=== PATIENT | male | born 1970 | race Caucasian/White ===

== ENCOUNTER 2021-07-07 09:47 | Outpatient (CLI) | payer BC | END 2021-07-07 23:59 | disposition home or self-care (01) | LOC: RAD 09:47 | PROVIDERS: ATTEND Internal Medicine | DX: M25.552 Pain in left hip (principal) | CPT/HCPCS: 73522 ==

== ENCOUNTER 2022-06-14 07:12 | Day surgery (SDC) | payer BC ==
[~2022-06-14] VITALS: Ht 175.3 cm; Wt 81.8 kg
[2022-06-14 07:25] VITALS: BP 137/74
[2022-06-14] MEDS ORDERED: [UNRECOGNIZED DRUG - OTHER] (07:27)
[2022-06-14] MEDS ORDERED: MULT-1085 PO (07:27)
[2022-06-14] MEDS ORDERED: OMEG-5 PO (07:27)
[2022-06-14] MEDS ORDERED: IBUP-1986 PO (07:27)
[2022-06-14] MEDS ORDERED: SAW/1TAB2 (07:27)
[2022-06-14] MEDS ORDERED: MIDAZolam 1 MG/ML 5ML VIAL ONE (07:47)
[2022-06-14] MEDS ORDERED: fentaNYL/PF 50MCG/1 ML 2ML syringe ONE (07:47)
[2022-06-14 09:17] VITALS: BP 103/49
[2022-06-14 09:27] VITALS: BP 111/62
[2022-06-14 09:37] VITALS: BP 111/74
== END 2022-06-14 09:50 | disposition home or self-care (01) ==
LOC: GI LAB 07:12
PROVIDERS: ATTEND Internal Medicine Gastroenterology
DX: Z12.11 Encounter for screening for malignant neoplasm of colon (principal); K63.5 Polyp of colon; K57.30 Diverticulosis of large intestine without perforation or abscess without bleeding; K64.8 Other hemorrhoids; F12.90 Cannabis use, unspecified, uncomplicated; Z72.89 Other problems related to lifestyle
CPT/HCPCS: 45385; 99152; 99153; C1889; J2250; J3010; J7030; Z7512; A4620

== ENCOUNTER 2023-08-09 19:05 | Emergency (ER) | payer BC ==
[~2023-08-09] VITALS: Ht 177.8 cm; Wt 83.6 kg
[~2023-08-09 19:05] MED LIST: IBUP-1986 PO; MULT-1085 PO; OMEG-5 PO; SAW/1TAB2; [UNRECOGNIZED DRUG - OTHER]
[2023-08-09 19:32] VITALS: BP 140/73; PULSE 73; RESP 16; TEMP 98.5; O2SAT 97
[2023-08-10] MEDS ORDERED: OXYC-145 PO (00:19)
== END 2023-08-10 00:43 | disposition home or self-care (01) ==
LOC: ER 19:06
DX: S30.0XXA Contusion of lower back and pelvis, initial encounter (principal); Z79.899 Other long term (current) drug therapy; Z79.1 Long term (current) use of non-steroidal anti-inflammatories (NSAID); W19.XXXA Unspecified fall, initial encounter; Y93.89 Activity, other specified; Y92.89 Other specified places as the place of occurrence of the external cause; Y99.8 Other external cause status
CPT/HCPCS: 72192; 73080; 99284

== ENCOUNTER 2024-09-13 16:55 | Inpatient (IN) | payer BC ==
[~2024-09-13] VITALS: Ht 175.3 cm; Wt 63.8 kg
[~2024-09-13 16:55] MED LIST changes: +OXYC-145 PO
[2024-09-13 17:33] LABS: BASOPHILS % (AUTO) 0.3 % (0-1); EOSINOPHILS # (AUTO) 0.1 X10'3 (0-0.9); EOSINOPHILS % (AUTO) 0.7 % (0-6); HEMATOCRIT 38.5 % (42.0-52.0); HEMOGLOBIN 13.3 g/dl (14.0-17.9); LYMPHOCYTES # (AUTO) 1.3 X10'3 (1.1-4.8); LYMPHOCYTES % (AUTO) 12.6 % (21-51); MEAN CORPUSCULAR HEMOGLOBIN 29.9 PG (27.0-31.0); MEAN CORPUSCULAR HGB CONC 34.5 g/dL (33.0-36.5); MEAN CORPUSCULAR VOLUME 86.8 FL (78-98); MEAN PLATELET VOLUME 7.2 FL (7.4-10.4); MONOCYTES # (AUTO) 0.7 X10'3 (0-0.9); MONOCYTES % (AUTO) 6.8 % (2-12); NEUTROPHILS # (AUTO) 8.4 X10'3 (1.8-7.7); NEUTROPHILS % (AUTO) 79.6 % (42-75); PLATELET COUNT 252 X10'3 (140-440); RED BLOOD COUNT 4.43 X10'6 (4.70-6.10); RED CELL DISTRIBUTION WIDTH 13.5 % (11.5-14.5); WHITE BLOOD COUNT 10.6 X10'3 (4.5-11.0)
[2024-09-13 17:54] LABS: ALANINE AMINOTRANSFERASE 48 U/L (12-78); ALBUMIN 3.7 G/DL (3.4-5.0); ALBUMIN/GLOBULIN RATIO 1.2 (1.1-1.5); ALKALINE PHOSPHATASE 72 IU/L (46-116); ANION GAP 7 (8-16); ASPARTATE AMINO TRANSFERASE 24 U/L (10-37); BILIRUBIN,TOTAL 0.5 MG/DL (0.1-1.0); BLOOD UREA NITROGEN 10 MG/DL (7-18); BUN/CREATININE RATIO 11.9 (10.0-20.0); CALCIUM 8.5 MG/DL (8.5-10.1); CHLORIDE 104 MMOL/L (99-107); CREATININE 0.84 MG/DL (0.60-1.10); GLUCOSE 115 MG/DL (70-104); LIPASE 76 U/L (16-77); POTASSIUM 3.6 MMOL/L (3.5-5.1); SODIUM 141 MMOL/L (135-145); TOTAL CARBON DIOXIDE 29.7 MMOL/L (24-32); TOTAL PROTEIN 6.9 G/DL (6.4-8.2); eCRCL 90 ML/MIN; eGFR > 90 ML/MIN
[2024-09-13 18:58] LABS: BILIRUBIN,URINE NEGATIVE (Neg); CLARITY,URINE CLEAR (Clear); COLOR,URINE YELLOW (Yellow); GLUCOSE, URINE NEGATIVE (Neg); KETONES,URINE NEGATIVE (Neg); LEUKOCYTE ESTERASE ,URINE NEGATIVE (Neg); NITRITES, URINE NEGATIVE (Neg); OCCULT BLOOD,URINE NEGATIVE (Neg); PROTEIN,URINE NEGATIVE (Neg); UROBILINOGEN,URINE 0.2 E.U/dL (0.2-1.0)
[2024-09-13 19:01] LABS: UA COLLECTION TYPE CLN CATCH MIDSTREAM
--- NOTE | 2024-09-13 20:18 | Physician Documentation ---
History of Present Illness ~ Chief Complaint: Abdominal Pain w/vomiting Stated Complaint: ABDOMINAL PAIN Time Seen by MD: 20:17 HPI Patient presents to the emergency room with chief complaint of right lower quadrant pain. Patient states that with the past few days he has been experiencing some vague abdominal pain. Bowel movements reported to be normal however some mild diarrhea today and then some dysuria. No fevers. He states he began to feel better however started to feel worse today he had began to have pain with walking and more focalizing in the right lower quadrant. He has had nothing for the pain. Medication Reconciliation Allergies: Coded Allergies: No Known Allergies (Unverified , 08/09/23) Scheduled Amlodipine Besylate (Amlodipine Besylate), 2 TAB PO DAILY, (Reported) Docosahexanoic Acid/Epa (Fish Oil 1,000 Mg Softgel), 1 CAP PO Q8H, (Reported) Multivitamin (Multi Vitamin Daily), 1 TAB PO DAILY, (Reported) Scheduled PRN Oxycodone HCl/Acetaminophen (Percocet 5-325 mg Tablet), 1 TAB PO TID PRN PRN for tail bone pain Miscellaneous Medications Saw/Vit E/Sod Silva/Lyc/Beta/Pyg (Prostate Health Caplet), Unknown Dose, (Reported) [[place]ifree], Unknown Dose, (Reported) Discontinued Medications Ibuprofen (Ibuprofen), 1 TAB PO BID, (Reported) Discontinued Reason: patient no longer taking Review of Systems ROS All review of systems negative except as per HPI Physical Exam Vital Signs: Temperature: 99.2, Source: Oral, Heart Rate: 67, Respiratory Rate: 15, BP: 130/68, Pulse Oximetry: 99, Weight: 63.800 Physical Exam General: Patient is awake, alert, oriented x4 in no acute distress and well appearing.~ Head: Normocephalic and atraumatic. Eyes: Conjunctival normal. EOMI. PERRL. ENT: Mucous membranes moist. Neck: Supple, trachea is midline. Chest: Clear to auscultation bilaterally without rales, rhonchi, or wheezes. There is no accessory muscle use or retractions. Cardiac: RRR without murmurs, gallops, or rubs. Abd: Soft, nondistended, positive right lower quadrant tenderness to palpation Progress Results/Orders Results/Orders Orders - JOSE F WATERS MD Ct Abdomen Pelvis (09/13/24 20:22) Culture Blood (09/13/24 21:19) Page Hospitalist (09/13/24 21:23) Fill Out Med Reconciliation (09/13/24 21:23) Completed Orders - JOSE F WATERS MD Ct Abdomen Pelvis (09/13/24 20:22) Ketorolac Trometh 15mg/Ml Vial (Toradol (09/13/24 20:25) Iohexol 300mg/Ml 100ml Inj. (Omnipaque-3 (09/13/24 20:27) Piperacillin/Tazo 3.375gm/50ml (Zosyn 3. (09/13/24 21:20) Procalcitonin (09/13/24 21:19) Lacticsepsis (09/13/24 21:19) Normal Saline 1000ml (Sodium Chloride 10 (09/13/24 21:30) Medications Received in ER Medications (Trade) Dose Ordered Sig/Araceli Route PRN Reason Start Time Stop Time Status Last Admin Dose Admin (Toradol injection) 15 mg ONCE ONCE IV 09/13/24 20:25 09/13/24 20:27 DC 09/13/24 20:43 15 MG Piperacillin/ Tazobactam/ Dextrose 50 ml @ 100 mls/hr ONCE ONCE IV 09/13/24 21:20 09/13/24 21:49 DC 09/13/24 23:20 100 MLS/HR Sodium Chloride 1,000 ml @ 1,000 mls/hr ONCE ONCE IV 09/13/24 21:30 09/13/24 22:29 DC 09/13/24 23:20 1,000 MLS/HR ([place] 5/325mg tablet) 1 tab ONCE ONCE PO 09/13/24 22:45 09/13/24 22:46 DC 09/13/24 23:24 1 TAB Sodium Chloride 1,000 ml @ 100 mls/hr Q10H IV 09/13/24 22:45 09/14/24 00:32 100 MLS/HR Vital Signs 09/13/24 09/13/24 09/13/24 09/13/24 17:01 20:04 20:43 22:00 Temp 99.2 Pulse 96 67 89 Resp 15 15 16 15 B/P (MAP) 143/91 130/68 (88) 135/78 (97) Pulse Ox 97 99 100 Laboratory Tests Test 09/13/24 17:06 09/13/24 17:25 09/13/24 21:34 Urine Specimen Description Cln catch midstream Urine Color Yellow Urine Clarity Clear Urine pH 6.0 Urine Specific [place] 1.015 Urine Protein Negative Urine Glucose (UA) Negative Urine Ketones Negative Urine Occult Blood Negative Urine Nitrite Negative Urine Bilirubin Negative Urine Urobilinogen 0.2 Urine Leukocyte Esterase Negative Urine Culture Indicated Not ind Volume Urine Centrifuged 10 ml Urine Comment White Blood Count 10.6 Red Blood Count 4.43 L Hemoglobin 13.3 L Hematocrit 38.5 L Mean Corpuscular Volume 86.8 Mean Corpuscular Hemoglobin 29.9 Mean Corpuscular Hemoglobin Concent 34.5 Red Cell Distribution Width 13.5 Platelet Count 252 Mean Platelet Volume 7.2 L Neutrophils (%) (Auto) 79.6 H Lymphocytes (%) (Auto) 12.6 L Monocytes (%) (Auto) 6.8 Eosinophils (%) (Auto) 0.7 Basophils (%) (Auto) 0.3 Neutrophils # (Auto) 8.4 H Lymphocytes # (Auto) 1.3 Monocytes # (Auto) 0.7 Eosinophils # (Auto) 0.1 Basophils # (Auto) 0.0 CBC Comment Sodium Level 141 Potassium Level 3.6 Chloride Level 104 Carbon Dioxide Level 29.7 Anion Gap 7 L Blood Urea Nitrogen 10 Creatinine 0.84 Estimated GFR/1.73 m2 > 90 BUN/Creatinine Ratio 11.9 Glucose Level 115 H Calcium Level 8.5 Total Bilirubin 0.5 Aspartate Amino Transf (AST/SGOT) 24 Alanine Aminotransferase (ALT/SGPT) 48 Alkaline Phosphatase 72 Total Protein 6.9 Albumin 3.7 Globulin 3.2 Albumin/Globulin Ratio 1.2 Lipase 76 Chemistry Comments Lactic Acid Level 0.7 Procalcitonin < 0.05 Microbiology Date/Time Source Procedure Growth Status 09/13/24 21:34 Blood Arm Left Blood Culture - Preliminary NEGATIVE (LESS THAN 24 HOURS) Resulted Medical Decision Making Findings Patient presents to the emergency room for evaluation of abdominal pain. Differentials include but are not limited to appendicitis diverticulitis pancreatitis cholecystitis kidney stone therefore emergent labs and imaging indicated. CT scan shows diverticulitis with bowel perforation. IV Zosyn initiated. Surgery made aware. Vital signs stable as are labs. Departure Admitted to Inpatient Unit: yes, to hospitalist Impression: Primary Impression: Perforation of sigmoid colon due to diverticulitis Condition: Guarded Referrals: NO PRIMARY CARE PROVIDER (PCP) Critical Care Note Total Time (mins): 65 Critical Care Note The very real possibility of a deterioration of this patient's condition required the highest level of my preparedness for sudden, emergent intervention. I provided critical care services, which included medication orders, frequent reevaluations of the patient's condition and response to treatment, ordering and reviewing test results, and discussing the case with various consultants. Excludes time spent performing separately billable procedures. The critical care time associated with the care of the patient was 65 minutes not counting procedures Signature Scribe Signature: No scribe Attestation: The note accurately reflects work and decisions made by me.Jose F Waters MD 09/13/24 21:24 JOSE F WATERS MD September 13, 2024 20:18
[2024-09-13] MEDS ORDERED: iohexol 300mg/ml 100ml inj. ONE (20:27)
[2024-09-13] MEDS: ketorolac trometh 15mg/ml vial 15 MG/ML ML IV ONE (20:43)
--- NOTE | 2024-09-13 21:08 | RADIOLOGY REPORT ---
Clinical History RLQ pain Comparison None Technique: All CT scans at this medical facility are performed using dose modulation techniques as appropriate t o a performed exam including the following: Automated exposure control was utilized; adjustment of th e mA and/or kV according to patient size; and use of iterative reconstruction technique. All CT studies are reported to the Dose Index Registry of the [employer]. Without Contrast Radiation Dose: CTDI (mGy): 19.49; DLP (mGy-cm): 863.93 NUHAKYREE VENEGAS, [id number] FINDINGS: Lower chest: Unremarkable Liver: Unremarkable Gallbladder: Unremarkable Pancreas: Unremarkable Spleen: Unremarkable Adrenals:Unremarkable Kidneys: Right renal cysts. Stomach:Unremarkable Bowel:Evaluation of the bowel is limited and incomplete due to lack of oral contrast. Acute divertic ulitis of sigmoid colon in the deep pelvis associated with localized perforation and adjacent loculat ed air collection measuring 1.6 x 1.3 cm. Normal appendix. Mural enhancement is seen in the ileal l oop adjacent to the area of acute diverticulitis suggesting secondary enteritis Urinary bladder:Unremarkable Reproductive organs:No pelvic masses Peritoneum, retroperitoneum, lymphadenopathy:Unremarkable Vascular structures:Unremarkable Abdominal wall:Unremarkable Musculoskeletal:No acute osseous abnormality IMPRESSION: Acute diverticulitis of sigmoid colon in the deep pelvis associated with localized perforation and ad jacent loculated air collection measuring 1.6 x 1.3 cm. Normal appendix This report was electronically signed by Raymon Thomas MD on 09/13/2024 9:04:43 PM.
[2024-09-13 22:00] VITALS: RESP 18; O2SAT 97
[2024-09-13] MEDS ORDERED: magnesium Cl slow-release 64mg tablet PO PRN (22:45)
[2024-09-13] MEDS ORDERED: magnesium sulf-water 4G/100mL 100 ML IV PRN (22:45)
[2024-09-13] MEDS ORDERED: potassium Cl 20 mEq SR tablet PO PRN ×2 (22:45)
[2024-09-13] MEDS ORDERED: magnesium sulf-water 2g/50mL 50 ML IV PRN (22:45)
[2024-09-13] MEDS ORDERED: potassium Cl 40MEQ/1/2NS 520ml 520 ML IV PRN (22:45)
[2024-09-13] MEDS: piperacillin/tazo 3.375gm/50ml 50 ML IV ONE (23:20)
[2024-09-13] MEDS: normal saline 1000ml 1,000 ML IV ONE (23:20)
[2024-09-13] MEDS: HYDROcodone/acetaminophen 5mg/325mg tablet PO ONE (23:24)
[2024-09-13 23:50] VITALS: BP 143/84; PULSE 90; RESP 15; TEMP 98.3; O2SAT 97
[2024-09-14] MEDS: normal saline 1000ml 1,000 ML IV SCH (00:32)
[2024-09-14] MEDS ORDERED: AMLO5TAB16 PO (00:41)
--- NOTE | 2024-09-14 01:07 | HISTORY AND PHYSICAL-Residence ---
History & Physical Providers to CC Resident Creating Document: DAVID WILLIAM RES ~ History of Present Illness Reason for Admit\Complaint: Abdominal pain History of Present Illness 54-year-old male history of chronic back pain and hypertension presents to the ED for abdominal pain for the last 24 hours. Yesterday morning patient woke up with severe diffuse abdominal pain with associated fatigue and on and off fevers. He states the pain let up and returned after he came back from work and was feeling very fatigued and fevers came back. Denies any nausea but states he was straining when he was going to bathroom and usually has to go 3 times a day. In the ED CT imaging had showed a sigmoid diverticulitis with localized perforation with adjacent loculated fluid collection. Started on Zosyn patient he is hemodynamically stable at this time Allergies: Coded Allergies: No Known Allergies (Unverified , 08/09/23) Home Medications Home Medications Active Percocet 5-325 mg Tablet (Oxycodone HCl/Acetaminophen) 5 Mg-325 Mg Tablet 1 Tab PO TID PRN PRN 5 Days Reported Amlodipine Besylate 5 Mg Tablet 2 Tab PO DAILY [[place]] Unknown Strength Unknown Dose Prostate Health Caplet (Saw/Vit E/Sod Silva/Lyc/Beta/Pyg) Unknown Strength Tablet Unknown Dose Fish Oil 1,000 Mg Softgel (Docosahexanoic Acid/Epa) 1 Each Capsule 1 Cap PO Q8H WITH MEALS Multi Vitamin Daily (Multivitamin) 1 Each Tablet 1 Tab PO DAILY Past Medical History Past Medical History Diverticulitis Hypertension Chronic back Past Surgical History Surgical History Comment Hernia repair Bilateral knee surgeries Past Social History Social History Comment Smokes cannabis occasionally denies smoking tobacco Exam Vitals: Vital Signs Date Time Temp Pulse Resp B/P (MAP) Pulse Ox O2 Delivery O2 Flow Rate FiO2 09/13/24 23:50 98.3 90 15 143/84 (103) 97 Room Air General: General: Awake and Alert, no acute distress. HEENT: Conjunctiva pink, Sclera clear, Mucus Membranes moist. Neck: Supple without masses and tenderness. Resp: Unlabored. Lungs clear to auscultation bilaterally. Heart: Regular Rate and rhythm, normal S1 and S2 without murmur, rub or gallop. Abdomen: Mild abdominal pain on palpation Extremities: No cyanosis,clubbing or edema. Skin: Warm and Dry. Diagnostic Data Last Recorded Lab Results: 09/13/24 17209/13/24 172 Advance Care Planning Advanced Care plannin - 30 Minutes Additional Plan Acute sigmoid diverticulitis complicated by a localized perforation with the adjacent fluid collection ED physician had consulted surgery. Currently hemodynamically stable with only mild pain. No signs of peritonitis Keep the patient NPO, IV fluids and continue Zosyn. Pain control with IV Dilaudid p.r.n. and antiemetics . Abscesses less than 2 cm continue antibiotics at this time. Outpatient colonoscopy after resolution of some Hypertension We will hold home amlodipine and continue hydralazine 5 mg IV q.6 Code Status: Full code DVT prophylaxis: SubQ heparin Analgesia/sedation: Dilaudid Lines/tubes: PIV Nutrition: NPO Prognosis: Guarded Disposition: Continue conservative management, surgery evaluation in a.m. David William MD Internal Medicine Resident PGY-3 Nocturnal student services coordinator attestation of resident HP. Attestation of HP only, care immediately directed to hospitalist team - Abx - Pain control - Gen surg eval - Luzma for DVT proph Patient seen through remote audiovisual assessment through HIPAA compliant setup. All labs, flowsheets, and images reviewed. Date of Service: September 14, 2024 Billing Provider: TOBIN GAMEZ Jr., TOBIN, RES September 14, 2024 01:07 TOBIN GAMEZ Jr., DO September 14, 2024 04:16
[2024-09-14] MEDS: hydrALAZINE 20mg/ml inj. IV SCH (02:00)
[2024-09-14 04:44] LABS: BASOPHILS % (AUTO) 0.5 % (0-1); EOSINOPHILS # (AUTO) 0.2 X10'3 (0-0.9); EOSINOPHILS % (AUTO) 1.9 % (0-6); HEMATOCRIT 35.9 % (42.0-52.0); HEMOGLOBIN 12.2 g/dl (14.0-17.9); LYMPHOCYTES # (AUTO) 1.4 X10'3 (1.1-4.8); LYMPHOCYTES % (AUTO) 15.8 % (21-51); MEAN CORPUSCULAR HEMOGLOBIN 29.9 PG (27.0-31.0); MEAN CORPUSCULAR HGB CONC 34.1 g/dL (33.0-36.5); MEAN CORPUSCULAR VOLUME 87.5 FL (78-98); MEAN PLATELET VOLUME 7.8 FL (7.4-10.4); MONOCYTES # (AUTO) 0.8 X10'3 (0-0.9); MONOCYTES % (AUTO) 8.4 % (2-12); NEUTROPHILS # (AUTO) 6.5 X10'3 (1.8-7.7); NEUTROPHILS % (AUTO) 73.4 % (42-75); PLATELET COUNT 215 X10'3 (140-440); RED CELL DISTRIBUTION WIDTH 13.5 % (11.5-14.5); WHITE BLOOD COUNT 8.9 X10'3 (4.5-11.0)
[2024-09-14 04:56] LABS: APTT 31 SECONDS (22-32); PROTHROMBIN TIME 10.4 SECONDS (9.0-12.0)
[2024-09-14 05:10] LABS: ALANINE AMINOTRANSFERASE 39 U/L (12-78); ALBUMIN 3.1 G/DL (3.4-5.0); ALBUMIN/GLOBULIN RATIO 1.1 (1.1-1.5); ALKALINE PHOSPHATASE 63 IU/L (46-116); ANION GAP 8 (8-16); ASPARTATE AMINO TRANSFERASE 20 U/L (10-37); BILIRUBIN,TOTAL 0.7 MG/DL (0.1-1.0); BLOOD UREA NITROGEN 8 MG/DL (7-18); BUN/CREATININE RATIO 10.7 (10.0-20.0); CHLORIDE 107 MMOL/L (99-107); CREATININE 0.75 MG/DL (0.60-1.10); GLUCOSE 105 MG/DL (70-104); MAGNESIUM 2.1 MG/DL (1.5-2.4); PHOSPHORUS 2.6 MG/DL (2.3-4.5); POTASSIUM 3.7 MMOL/L (3.5-5.1); SODIUM 142 MMOL/L (135-145); eCRCL 100 ML/MIN; eGFR > 90 ML/MIN
[2024-09-14 06:47] VITALS: BP 131/85; PULSE 70; RESP 16; TEMP 99.2; O2SAT 98
[2024-09-14] MEDS: HYDROmorphone 1 mg/ml syringe IV PRN (06:57)
[2024-09-14 07:00] VITALS: RESP 14; O2SAT 96
[2024-09-14] MEDS: heparin, porcine 5000 units/ml vial SQ SCH (07:03)
[2024-09-14] MEDS: K and/or MAG REPLACEMENT MC SCH (08:00)
[2024-09-14] MEDS: piperacillin/tazo 4.5gm/100ml 100 ML IV SCH (08:39)
[2024-09-14] MEDS ORDERED: acetaminophen 325mg tablet PO PRN (10:55)
[2024-09-14 11:00] VITALS: BP 131/82; PULSE 67; RESP 14; TEMP 97.6; O2SAT 96
[2024-09-14] MEDS: acetaminophen 325mg tablet PO PRN (11:02)
--- NOTE | 2024-09-14 15:33 | PROGRESS NOTE- Residence ---
Progress Note - Resident Providers to CC Resident Creating Document: MOISE KIRAN, ELIZ ~ Central Line/PICC still needed: No [place]-Non Protocol [place] Indications Met/Not Met: F/C Indications Not Met Antibiotic Timeout Antibiotic Ordered?: Yes Subjective Patient is at bedside, denies any further complaints of severe abdominal pain. Complains of intermittent temperatures but otherwise remained hemodynamically stable. He has been passing gas Objective Vital Signs Date Time Temp Pulse Resp B/P (MAP) Pulse Ox O2 Delivery O2 Flow Rate FiO2 09/14/24 11:05 18 09/14/24 11:00 97.6 67 131/82 (98) 96 Room Air Result Diagram: 09/14/2441009/14/24410 General: Awake and Alert, no acute distress. HEENT: Conjunctiva pink, Sclera clear, Mucus Membranes moist. Neck: Supple without masses and tenderness. Resp: Unlabored. Lungs clear to auscultation bilaterally. Heart: Regular Rate and rhythm, normal S1 and S2 without murmur, rub or gallop. Abdomen: Mild distention, soft, tenderness in the right hypogastric region, no further tenderness noted anywhere else. No rebound tenderness/guarding/rigidity. Bowel sounds present Extremities: No cyanosis,clubbing or edema. Diminished sensation of the left lower limb extremity on the foot Skin: Warm and Dry. 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 He was diagnosed to have a sigmoid diverticular micro perforation associated with surrounding abscess of 1.8 cm. Plan Plan 1. Acute sigmoid diverticular abscess and microperforation: CT abdomen/pelvis on 09/13/2024 reveals presence of sigmoid diverticulitis with localized perforation, surrounding loculated air collection measuring 1.6 x 1.3 cm and associated adjacent mural enhancement of the ileal loop suggesting secondary enteritis 09/13/2024: Hemodynamically stable - no leukocytosis - consulted surgery - started IV Zosyn 09/14/2024: - surgery consulted and suggest no requirement of any intervention at this time - continue monitoring CBC, no leukocytosis still. Hemodynamically stable. Mild temperature elevations which were controlled with Tylenol - continuing Zosyn (day one) We will monitor the patient in the hospital until criteria for discharge home a re met which include Normalization of vital signs (ie, resolution of high fever, tachycardia, or hypotension), Resolution of severe abdominal pain, no leukocytosis, tolerance of oral diet and resumption of bowel movements Outpatient evaluation with a colonoscopy for level of diverticular disease and possible underlying polyps Encourage moving and walking around 2. Hypertension: Restart home medications of amlodipine HS Disposition: Once patient shows signs and symptoms of improvement, he can be discharged home with p.o. antibiotic therapy of Flagyl and ciprofloxacin for a total period to cover about 10 days of antibiotic therapy. Outpatient evaluation with colonoscopy Lines: PIV Code status: Full code Diet: Advance diet as able from clear liquid diet GI prophylaxis: Protonix DVT prophylaxis: Heparin but patient declining Moise Kiran PGY2, Internal medicine resident Date of Service: September 14, 2024 Billing Provider: ALETHA SOTO MD Common Visit Codes: [id number] INP/OBS CARE(HIGH) MOISE KIRAN, ELIZ September 14, 2024 15:33 ALETHA SOTO MD September 14, 2024 18:40
[2024-09-14] MEDS: HYDROcodone/acetaminophen 5mg/325mg tablet PO PRN (16:22)
[2024-09-14 18:00] VITALS: BP_SYST 113; BP_SYST 129; BP_DIAS 48; BP_DIAS 68; PULSE 63; PULSE 68; RESP 14; RESP 16; TEMP 98.2; O2SAT 98
[2024-09-14] MEDS: ondansetron/PF 4mg/2ml inj IV PRN (18:10)
[2024-09-14] MEDS: amLODIPine 5mg tablet PO ONE (19:00)
[2024-09-14 20:00] VITALS: RESP 14; O2SAT 98
[2024-09-14 22:00] VITALS: BP 113/48; PULSE 63; RESP 16; TEMP 98.2; O2SAT 98
[2024-09-15 06:07] LABS: APTT 31 SECONDS (22-32); PROTHROMBIN TIME 10.3 SECONDS (9.0-12.0)
[2024-09-15 06:19] LABS: BASOPHILS # (AUTO) 0.1 X10'3 (0-0.2); BASOPHILS % (AUTO) 0.7 % (0-1); EOSINOPHILS # (AUTO) 0.2 X10'3 (0-0.9); HEMATOCRIT 39.2 % (42.0-52.0); HEMOGLOBIN 13.1 g/dl (14.0-17.9); LYMPHOCYTES # (AUTO) 1.4 X10'3 (1.1-4.8); LYMPHOCYTES % (AUTO) 18.2 % (21-51); MEAN CORPUSCULAR HEMOGLOBIN 28.9 PG (27.0-31.0); MEAN CORPUSCULAR HGB CONC 33.5 g/dL (33.0-36.5); MEAN CORPUSCULAR VOLUME 86.5 FL (78-98); MEAN PLATELET VOLUME 7.8 FL (7.4-10.4); MONOCYTES # (AUTO) 0.5 X10'3 (0-0.9); MONOCYTES % (AUTO) 5.8 % (2-12); NEUTROPHILS # (AUTO) 5.6 X10'3 (1.8-7.7); NEUTROPHILS % (AUTO) 72.3 % (42-75); PLATELET COUNT 254 X10'3 (140-440); RED BLOOD COUNT 4.54 X10'6 (4.70-6.10); RED CELL DISTRIBUTION WIDTH 13.6 % (11.5-14.5); WHITE BLOOD COUNT 7.8 X10'3 (4.5-11.0)
[2024-09-15 06:21] LABS: ALANINE AMINOTRANSFERASE 38 U/L (12-78); ALBUMIN 3.3 G/DL (3.4-5.0); ALBUMIN/GLOBULIN RATIO 0.9 (1.1-1.5); ALKALINE PHOSPHATASE 66 IU/L (46-116); ANION GAP 10 (8-16); ASPARTATE AMINO TRANSFERASE 19 U/L (10-37); BILIRUBIN,TOTAL 0.6 MG/DL (0.1-1.0); BLOOD UREA NITROGEN 5 MG/DL (7-18); BUN/CREATININE RATIO 6.9 (10.0-20.0); CALCIUM 8.5 MG/DL (8.5-10.1); CHLORIDE 103 MMOL/L (99-107); CREATININE 0.72 MG/DL (0.60-1.10); GLUCOSE 101 MG/DL (70-104); PHOSPHORUS 2.3 MG/DL (2.3-4.5); POTASSIUM 3.5 MMOL/L (3.5-5.1); SODIUM 140 MMOL/L (135-145); TOTAL CARBON DIOXIDE 27.1 MMOL/L (24-32); TOTAL PROTEIN 6.8 G/DL (6.4-8.2); eCRCL 105 ML/MIN; eGFR > 90 ML/MIN
[2024-09-15 06:37] VITALS: BP 147/84; PULSE 81; RESP 16; TEMP 98.3; O2SAT 98
[2024-09-15] MEDS: pantoprazole 40 MG vial IV SCH (07:40)
[2024-09-15 07:45] VITALS: RESP 16; O2SAT 98
[2024-09-15] MEDS ORDERED: amLODIPine 5mg tablet PO SCH (08:00)
[2024-09-15 10:00] VITALS: BP 141/79; PULSE 71; RESP 17; TEMP 98.2; O2SAT 98
--- NOTE | 2024-09-15 13:30 | PROGRESS NOTE- Residence ---
Progress Note - Resident Providers to CC Resident Creating Document: MOISE KIRAN RES ~ Central Line/PICC still needed: No [place]-Non Protocol [place] Indications Met/Not Met: F/C Indications Not Met Antibiotic Timeout Antibiotic Ordered?: Yes Subjective Patient is ambulating around the floor. Denies any acute abdominal complaints at this time. Denies any acute overnight events either. He reports some belching and passing gas but has not had a bowel movement yet. His diet has been advanced today further. He is tolerating full liquid diet with no nausea or vomiting. Denies any abdominal tenderness either. Pain scale of only 2/10. Objective Vital Signs Date Time Temp Pulse Resp B/P (MAP) Pulse Ox O2 Delivery O2 Flow Rate FiO2 09/15/24 07:45 16 98 Room Air 09/15/24 06:37 98.3 81 147/84 (105) Result Diagram: 09/15/24 0502 09/15/24 0502 General: Awake and Alert, no acute distress. HEENT: Conjunctiva pink, Sclera clear, Mucus Membranes moist. Resp: Unlabored. Lungs clear to auscultation bilaterally. Heart: Regular Rate and rhythm, normal S1 and S2 without murmur, rub or gallop. Abdomen: Significant Interval decrease in distention, mild tenderness in the right hypogastric quadrant. Bowel sounds diffusely present Extremities: No cyanosis,clubbing or edema. Diminished sensation of the left lower limb extremity on the foot Skin: Warm and Dry. 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 He was diagnosed to have a sigmoid diverticular micro perforation associated with surrounding abscess of 1.8 cm. Plan Plan 1. Acute sigmoid diverticular abscess and microperforation: CT abdomen/pelvis on 09/13/2024 reveals presence of sigmoid diverticulitis with localized perforation, surrounding loculated air collection measuring 1.6 x 1.3 cm and associated adjacent mural enhancement of the ileal loop suggesting secondary enteritis 09/13/2024: Hemodynamically stable - no leukocytosis - consulted surgery - started IV Zosyn 09/14/2024: - surgery consulted and suggest no requirement of any intervention at this time - continue monitoring CBC, no leukocytosis still. Hemodynamically stable. Mild temperature elevations which were controlled with Tylenol - continuing Zosyn (day one) We will monitor the patient in the hospital until criteria for discharge home a re met which include Normalization of vital signs (ie, resolution of high fever, tachycardia, or hypotension), Resolution of severe abdominal pain, no leukocytosis, tolerance of oral diet and resumption of bowel movements Outpatient evaluation with a colonoscopy for level of diverticular disease and possible underlying polyps Encourage moving and walking around 09/15/2024: No leukocytosis on the CBC today. No febrile episodes or other signs of hemodynamic instability reported overnight. Diet advanced to full liquid diet, tolerating well without any nausea or vomiting Awaiting bowel movement at passing gas Zosyn day 2 Can switch to oral antibiotic therapy for discharge tomorrow with the patient continues to remain stable 2. Hypertension: Restart home medications of amlodipine HS Disposition: If he continues to remain stable with no nausea or vomiting, able to tolerate diet as advanced and if possible, also able to have a bowel movement, patient can be discharged home safely tomorrow. Switch to oral antibiotic therapy of Flagyl and ciprofloxacin to complete a total duration of antibiotic therapy for 14 days. Lines: PIV Code status: Full code Diet: Full liquid diet, advance as tolerated GI prophylaxis: Protonix DVT prophylaxis: Heparin but patient declining Moise Kiran PGY2, Internal medicine resident Date of Service: September 15, 2024 Billing Provider: ALETHA SOTO MD Common Visit Codes: [id number] INP/OBS CARE(HIGH) MOISE KIRAN, ELIZ September 15, 2024 13:30 ALETHA SOTO MD September 15, 2024 16:38
[2024-09-15 18:00] VITALS: BP 150/90; PULSE 71; RESP 20; TEMP 98.9; O2SAT 98
[2024-09-15 20:00] VITALS: RESP 20; O2SAT 98
[2024-09-15] MEDS: amLODIPine 5mg tablet PO SCH (20:13)
[2024-09-15 22:00] VITALS: BP 129/82; PULSE 57; RESP 18; TEMP 97.9; O2SAT 100
[2024-09-16 05:56] LABS: BASOPHILS # (AUTO) 0.1 X10'3 (0-0.2); BASOPHILS % (AUTO) 0.8 % (0-1); EOSINOPHILS # (AUTO) 0.2 X10'3 (0-0.9); EOSINOPHILS % (AUTO) 2.9 % (0-6); HEMATOCRIT 37.2 % (42.0-52.0); HEMOGLOBIN 12.8 g/dl (14.0-17.9); LYMPHOCYTES # (AUTO) 1.4 X10'3 (1.1-4.8); LYMPHOCYTES % (AUTO) 20.3 % (21-51); MEAN CORPUSCULAR HEMOGLOBIN 29.7 PG (27.0-31.0); MEAN CORPUSCULAR HGB CONC 34.4 g/dL (33.0-36.5); MEAN CORPUSCULAR VOLUME 86.3 FL (78-98); MEAN PLATELET VOLUME 7.4 FL (7.4-10.4); MONOCYTES # (AUTO) 0.7 X10'3 (0-0.9); MONOCYTES % (AUTO) 9.6 % (2-12); NEUTROPHILS # (AUTO) 4.5 X10'3 (1.8-7.7); NEUTROPHILS % (AUTO) 66.4 % (42-75); PLATELET COUNT 246 X10'3 (140-440); RED BLOOD COUNT 4.31 X10'6 (4.70-6.10); RED CELL DISTRIBUTION WIDTH 13.4 % (11.5-14.5); WHITE BLOOD COUNT 6.8 X10'3 (4.5-11.0)
[2024-09-16 06:11] LABS: APTT 29 SECONDS (22-32); PROTHROMBIN TIME 10.2 SECONDS (9.0-12.0)
[2024-09-16 06:27] LABS: ALANINE AMINOTRANSFERASE 38 U/L (12-78); ALBUMIN/GLOBULIN RATIO 0.9 (1.1-1.5); ALKALINE PHOSPHATASE 64 IU/L (46-116); ANION GAP 6 (8-16); ASPARTATE AMINO TRANSFERASE 14 U/L (10-37); BILIRUBIN,TOTAL 0.4 MG/DL (0.1-1.0); BLOOD UREA NITROGEN 6 MG/DL (7-18); CALCIUM 8.6 MG/DL (8.5-10.1); CHLORIDE 107 MMOL/L (99-107); CREATININE 0.75 MG/DL (0.60-1.10); GLUCOSE 107 MG/DL (70-104); PHOSPHORUS 2.9 MG/DL (2.3-4.5); POTASSIUM 3.7 MMOL/L (3.5-5.1); SODIUM 142 MMOL/L (135-145); TOTAL CARBON DIOXIDE 28.9 MMOL/L (24-32); TOTAL PROTEIN 6.5 G/DL (6.4-8.2); eCRCL 100 ML/MIN; eGFR > 90 ML/MIN
[2024-09-16] MEDS ORDERED: METR-159 PO (08:15)
[2024-09-16] MEDS ORDERED: CIPR750T14 PO (08:15)
--- NOTE | 2024-09-16 09:54 | DISCHARGE SUMMARY-Residence ---
Discharge Summary Providers to CC Resident Creating Document: NILSONLUIS FERNANDO, RES ~ Discharge Summary Admission Diagnosis: Sigmoid diverticulitis with localized perforation Hospital Course DATE OF ADMISSION: 09/13/24 DATE OF DISCHARGE: 09/16/24 Discharge Diagnosis\Comment: # Acute sigmoid diverticular abscess and microperforation # Hypertension Operations\Procedures: None Consultants: Dr Escobedo, Surgery Complications: None Condition on DC: Stable New Medications: Ciprofloxacin* (Cipro 750MG tablet*) 750 Mg Tab 1 TAB PO Q12H for 14 Days, #28 TAB Metronidazole* (Flagyl*) 500 Mg Tablet 1 TAB PO Q12H for 14 Days, #28 TAB Continued Medications: Amlodipine Besylate (Amlodipine Besylate) 5 Mg Tablet 2 TAB PO DAILY Docosahexanoic Acid/Epa (Fish Oil 1,000 Mg Softgel) 1 Each Capsule 1 CAP PO Q8H, CAP 0 Refills WITH MEALS Multivitamin (Multi Vitamin Daily) 1 Each Tablet 1 TAB PO DAILY, TAB 0 Refills Oxycodone HCl/Acetaminophen (Percocet 5-325 mg Tablet) 5 Mg-325 Mg Tablet 1 TAB PO TID PRN PRN for tail bone pain for 5 Days, #15 TAB 0 Refills Saw/Vit E/Sod Silva/Lyc/Beta/Pyg (Prostate Health Caplet) Unknown Strength Tablet Unknown Dose [Teunifree] () Unknown Strength Unknown Dose Discharge Summary: A 54-year-old male presented with acute abdominal pain found to have sigmoid diverticulitis along with micro perforation and surrounding abscess of 1.8 cm with a background medical history of intervertebral disc herniation between L3- L5 and 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 Hospital course: He was admitted for the his acute abdominal pain evaluation and further management plan. He underwent CT AP on 09/13/2024 showed presence of sigmoid diverticulitis with a localized perforation, surrounding loculated air collection measuring 1.6 x 1.3 cm, associated adjacent neuro enhancement of the ileal loop suggesting secondary enteritis. He was given IV Zosyn for total two days during his stay. General surgery Dr. Escobedo was requested for the consultation and recommended for the conservative and observative therapy at that moment as there was no indications for any other urgent interventions were needed. His vitals and labs were stable during his stay. During his stay and monitoring, his vitals were stable, labs were stabilizing, showing some significant improved in clinical features including abdominal pain, passing gas, passing bowel movement this morning with tolerating of his oral regular diet. Surgical team suggestive for the possible outpatient follow up for colonoscopy again. PT was provided, GI prophylaxis was done with IV Protonix and sc heparin was given for DVT prophylaxis, however, the patient denied to have one. His home medication were reconciled and continue appropriately including amlodipine HS to control his high blood pressure during hospitalization. Today, all of his labs were reviewed which were WNL including WBC 6.8, hemoglobin 13, hematocrit 37, BUN six and creatinine 0.75, and he passed gas and bowel movement this morning. He also tolerating a regular diet with a having any nausea and vomiting and abdominal pain. All of his questions and concerns were answered with the best knowledge of our team before he was discharged. Vitals were stable at the moment with temp 97.9 F, GA 57/minute, RR 18/minute, BP 130/80 mm Hg, pulse oximetry 100% on room air. On examination, General: Well alert, well oriented, not confused, not agitated, not in acute distress, well cooperated during the physical. HEENT: Conjunctive are pink, sclerae clear, no icterus, pupil is equal in both sides, reactive to light, no ear discharge, no pharyngeal erythema or an edema, mouth and lips are moist. Neck: Supple, no JVD, no lymphadenopathy and thyromegaly. Lungs:Equal air entry on both lungs, no additional sounds Heart: S1-S2 regular sinus rhythm and, regular rate, no gallops, no rubs, no murmurs Abdomen: No visible peristalsis, Bowel sounds present on auscultation, soft, nontender except for the slight tenderness in the RHC, no guarding, no rigidity Extremities: No obvious deformities, no pitting edema bilaterally, capillary refill intact, able to wiggle toes both sides, peripheral pulsations are intact on both sides BICYCLE MESSENGER: No focal neurological deficits, no motor and sensory weakness in all 4 extremities, could move all 4 extremities Musculoskeletal: No joint swelling, deformities, inflammations, and no scoliosis and back tenderness Skin: No active skin lesions and rashes Discharge instructions: - Return to [facility] for any emergency conditions including progressive intolerable abdominal pain, nausea, vomiting and abdominal swelling etc -continue completing the Oral Antibiotics for total 14 days to avoid unnecessary resistant -Make an appointment with PCP and Surgery for any further managment including blood checks and possible recheck COlonoscopy -Downgraded/ upgraded the diet as you can tolerate Resident MD attestation: Patient was seen, examined and discussed with attending MD, Dr. Taniya DEVINE MD Internal Medicine Resident, PGY2 [facility] *Problems/Diagnosis: (1) Perforation of sigmoid colon due to diverticulitis Status: Resolved Total Time Spent on D/C: > 30 Minutes Date of Service: September 16, 2024 Billing Provider: ALETHA SOTO MD Common Visit Codes: 99100-GGN/OBS DISCH DAY >30min LUIS FERNANDO DEVINE, RES September 16, 2024 09:54 ALETHA SOTO MD September 16, 2024 18:25
== END 2024-09-16 10:10 | disposition home or self-care (01) | DRG 392 ==
LOC: ER 16:56 → ED HOLD 22:57 → SUR 3N 23:35
PROVIDERS: ADMIT Internal Medicine Critical Care Medicine; ATTEND Internal Medicine
DX: K57.20 Diverticulitis of large intestine with perforation and abscess without bleeding (principal); G89.29 Other chronic pain; M54.9 Dorsalgia, unspecified; I10 Essential (primary) hypertension
CPT/HCPCS: 36415; 74177; 80053; 81003; 83605; 83690; 83735; 84100; 84145; 85025; 85610; 85730; 87040; 87081; 96365; 96375; 99291; A6258; G0378; J1171; J1885; J2405; J2470; J2543; J7030; Q9967